=== PATIENT | female | born 1960 | race Caucasian/White ===

== ENCOUNTER 2020-07-02 10:28 | Emergency (ER) | payer OTHER ==
[2020-07-02] MEDS ORDERED: ACETAMINOPHEN 500 MG TABLET (FP) PO ONE (10:40)
[2020-07-02] MEDS ORDERED: ACETAMINOPHEN 325 MG TABLET (FP) ONE (10:44)
[2020-07-02 10:46] VITALS: BP 135/74; PULSE 65; TEMP 98; BMI 23.8
== END 2020-07-02 11:47 | disposition home or self-care (01) ==
LOC: FER 10:28
DX: S92.354A Nondisplaced fracture of fifth metatarsal bone, right foot, initial encounter for closed fracture (principal)
CPT/HCPCS: 73610-TC-RT-FY; 73630-TC-RT-FY; 99283-25